=== PATIENT | male | born 1935 | race Caucasian/White ===

== ENCOUNTER 2016-08-12 11:14 | Day surgery (SDC) | payer MEDICARE, OTHER ==
[2016-08-12] VITALS (8 sets, daily range): BP systolic 132–142; BP diastolic 61–70; PULSE 57–69; RESP 11–16; O2SAT 99–100
[~2016-08-12] VITALS: Ht 172.7 cm; Wt 67.6 kg
[~2016-08-12 11:14] MED LIST: ASPI-973 PO; ATOR40TA69 PO; CeFAZolin Inj 2 GM in IV Premix 1 EACH IV SCH; LOPE2CAP PO; Lactated Ringer's 1,000 ML IV SCH
[2016-08-12] MEDS ORDERED: EPHEDrine/NS 5 mg/mL 5 mL Syringe ONE (11:15)
[2016-08-12] MEDS ORDERED: Lidocaine PF 1% 30 mL Inj ONE (11:15)
[2016-08-12] MEDS ORDERED: Propofol 10,000 mCg/mL 20 mL Inj ONE (11:15)
[2016-08-12] MEDS ORDERED: Ondansetron 2 mg/mL 2 mL Inj ONE (11:15)
[2016-08-12] MEDS ORDERED: fentaNYL-PF 50 mCg/mL 2 mL Inj ONE (11:15)
[2016-08-12] MEDS ORDERED: Lactated Ringer's 1,000 ML IV ONE (11:55)
--- NOTE | 2016-08-12 12:54 | PCM.HPANE ---
Patient Data Date of Service: Aug 12, 2016 Surgeon Admitting Provider: Attending Provider:Duran Carreon MD Primary Care Physician:Marilyn Huston Other Provider:Stefany Conde Anesthesia Reason for Visit Right Inguinal Hernia Ht/WT & BMI Height (Feet): 5 Height (Inches): 8.00 Weight (Kilograms): 67.580 Body Mass Index 22.00 Allergies Uncoded Allergies: EGGS (Allergy, Unknown, diarrhea, 08/10/16) Past Anesthesia History Anesthesia History: Denies:: Anesthesia Reactions, Fam Anesthesia Reaction Diabetes History Hx Diabetes?: No MRSA MRSA: No Medications Blood Thinner: Aspirin Hypertension Medication: No Home Meds Incl Beta Duke: No Reported Medications Loperamide 2 Mg Capsule2 Mg PO Q4H PRN For Diarrhea or Loose Stool 08/10/16 Aspirin 81 Mg [id number] Mg PO DAILY Ref 0 08/10/16 Atorvastatin Calcium 40 Mg [id number] Mg PO DAILY CHOLESTEROL Ref 0 04/24/16 Discontinued Reported Medications Lisinopril 10 Mg [id number] Mg PO DAILY HIGH BLOOD PRESSURE 30 Days Ref 0 04/24/16 History History of ENT Problems?: No HEENT History: Positive for:: Cataracts Hearing Problem Denies:: Dysphagia Sinus Problem Hx of Heart Problems?: Yes Cardiovascular History: Positive for:: Hypertension (no longer takes rx) Denies:: Cardiac Surgery Chest Pain Congestive Heart Failure Edema Heart Murmur Irregular Heartbeat Pacemaker Thrombophlebitis Hx of Respiratory Problem?: No Respiratory History: Positive for:: Pneumonia Denies:: Asthma COPD Chest Surgery Dyspnea Emphysema Hemoptysis Oxygen Administration Tuberculosis Use of C-PAP Machine Hx Neurologic Problems?: Yes Neurological History: Positive for:: TIA (3-4 years ago- pt states he had a mini stroke, no medical documentation) Denies:: Alzheimer's Disease CVA Dementia Dizziness Headaches Multiple Sclerosis Parkinson's Disease Seizures Hx of GI Problems?: Yes Gastrointestinal History: Positive for:: Hiatal Hernia Denies:: Diverticulitis Gastroesphageal Reflux Gastrointestinal Bleeding Heartburn Hepatitis Rectal Bleeding Other GI Pertinent History: hx of ileocecotomy recently. Recently struggling with diarrhea- taking loperamide Hx of Problems?: No Genitourinary History: Denies:: HX of Hemodialysis Kidney Stones Urinary Tract Infection HX of Peritoneal Dialysis: No Male Hx: Positive for:: Prostate Problems (Prostrate removed 2001) Denies:: Scrotal Mass Testicular Surgery Skin History: Denies:: History Skin Disorders? Pressure Ulcers Hx Musculoskeletal Problems?: No Musculoskeletal History: Denies:: Back Injury Fibromyalgia Joint Replacement Musculoskeletal Trauma Hx of Psycho/Social Problems?: No Psycho Social History: Denies:: Anxiety Bipolar Disorder Hx Depression Suicide Attempt Hx Surgeries?: Yes (prostatectomy, ileocecotomy) Hx Any Other Health Problems?: Yes Other History: Positive for:: Cancer (Prostrate CA removed 2001) Hospitalization Denies:: Thyroid Disease History Blood Transfusions: Positive for:: Accept Blood Products? Blood Transfusions Denies:: Blood Transfuse Reaction Hx Diabetes: No Hx Alcohol Use: No (not for 7-8 years ago, very rarely now)Hx Substance Use: No Smoking Status: Former Smoker Have You Smoked inLast 12 mo: No Stop/Bang S-Snoring: Do You Snore Loudly: No T-Tired: feel tired, fatigued: No O-Obsered: Observed not breath: No P-Blood Pressure: treated: Yes B- Body Mass Index > 35 kg/m2: No A- Age over 50: Yes N- Neck Large Circumference: No G- Gender Male: Yes JODIE Total Score: 3 JODIE Risk Assessment: Low Risk, <3 Yes Risk Assessment Category Category 1A: Patient has history of documented sleep apnea, and HAS NOT received any narcotic, sedative or anesthesia administration during this stay. Category 1B: Patient has history of documented sleep apnea, and HAS received any narcotic , sedative or anesthesia administration during this stay Category 2: Patient has SUSPECTED Obstructive Sleep Apnea, and HAS received any narcotic , sedative or anesthesia administration during this stay. Category 3: Patient has SUSPECTED Obstructive Sleep Apnea and HAS NOT received narcotic, sedative or anesthesia administration during this stay. Category 4: Outpatient in Procedural Areas with known sleep apnea or who screen positive for High Risk via the STOP/BANG questionnaire. Exam Exam Vital Signs Vital Signs Date Time Temp Pulse Resp B/P Pulse Ox O2 Delivery O2 Flow Rate FiO2 08/12/16 11:49 36.6 62 14 135/65 100 Room Air General Appearance: Alert, Oriented X3, Cooperative, No Acute Distress HEENT/AIRWAY: MP 2 Lungs: Clear to Auscultation, Normal Air Movement Heart: Exam Unremarkable, Regular Rate/Rhythm, No Murmurs/Rubs/Gallops Meds/Labs/Diagnostics Admission Meds Current Medications Lactated Ringer's (Lr) 1,000 ml @ ud STK-MED ONCE IV Last administered on t 11:55; Start 08/12/16 at 11:55; Stop 08/12/16 at 11:56; Status DC Plan Impression Patient chart reviewed, patient interviewed and anesthestic plan with risks, benefits, and alternatives discussed, and informed consent obtained. NPO Status: confirmed before mn ASA Physical Status: ASA2 Mod Systemic Disease Anesthetic Plan: GA Bene/Risks/Altern/Consents: Yes HP Complete Prior to Induction: Yes Nir Cantrell MD Aug 12, 2016 12:54
[2016-08-12] MEDS ORDERED: Bupivacaine-MPF 0.5% 30 mL Inj INFILTRATE ONE (13:18)
[2016-08-12] MEDS ORDERED: Lactated Ringer's 1,000 ML IV SCH (13:33)
[2016-08-12] MEDS ORDERED: Lactated Ringer's 500 ML IV PRN (13:33)
[2016-08-12] MEDS ORDERED: Phenylephrine 10,000 mCg/mL Inj IVPUSH PRN (13:35)
[2016-08-12] MEDS ORDERED: Labetalol 5 mg/mL 4 mL Inj IV PRN (13:35)
[2016-08-12] MEDS ORDERED: Ondansetron 2 mg/mL 2 mL Inj IVPUSH PRN (13:35)
[2016-08-12] MEDS ORDERED: fentaNYL-PF 50 mCg/mL 2 mL Inj IVPUSH PRN (13:35)
[2016-08-12] MEDS ORDERED: HYDROmorphone 1 mg/mL Inj IVPUSH PRN (13:35)
[2016-08-12] MEDS ORDERED: EPHEDrine Sulfate 50 mg/mL Inj IVPUSH PRN (13:35)
[2016-08-12] MEDS ORDERED: Dexamethasone 4 mg/mL Inj IVPUSH PRN (13:35)
[2016-08-12] MEDS ORDERED: hydrALAZINE 20 mg/mL Inj IVPUSH PRN (13:35)
[2016-08-12] MEDS ORDERED: Atropine 0.4 mg/mL Inj IVPUSH PRN (13:35)
[2016-08-12] MEDS ORDERED: MetoCLOpramide 5 mg/mL 2 mL Inj IVPUSH PRN (13:35)
[2016-08-12] MEDS ORDERED: oxyCODONE-Acetamin 5-325 mg Tablet PO PRN (13:55)
--- NOTE | 2016-08-12 14:00 | PCM.ANEP1 ---
Post Anesthesia Phase 1 PACU Phase 1 Assessment Date of Service: Aug 12, 2016 Vital Signs Vital Signs Date Time Temp Pulse Resp B/P Pulse Ox O2 Delivery O2 Flow Rate FiO2 08/12/16 13:55 62 11 142/67 99 Room Air 08/12/16 13:53 36.8 138/67 08/12/16 11:49 36.6 62 14 135/65 100 Room Air Anesthetic Administered: GA Level of Alertness: Sleeping, hard to arouse SHARPE's with Equal Strength: Yes Pain: No Nausea or Vomiting: No Oxygen Delivery: Room Air Lungs: Clear to Auscultation, Normal Air Movement Nir Cantrell MD Aug 12, 2016 14:00
--- NOTE | 2016-08-12 14:23 | OP ---
[address] [id number] OPERATIVE REPORT PATIENT: HILARIO LUCAS : 1935 MR#: [id number] ADMIT: 08/12/2016 JOB ID: [id number] DATE OF SURGERY: 08/12/2016 ANESTHESIA: General. PREOPERATIVE DIAGNOSIS(ES): Symptomatic right inguinal hernia. POSTOPERATIVE DIAGNOSIS(ES): Symptomatic right inguinal hernia (indirect). OPERATION: Open repair of right inguinal hernia using mesh. SURGEON: Duran Carreon MD DIRECTOR CAREER SERVICES: 1. Serafin Molina PA-C (the assistant manager bilingual was required for the safe and timely completion of the case). 2. AMANDA Malhotra. COMPLICATIONS: None. ESTIMATED BLOOD LOSS: Minimal. CONDITION: Satisfactory. SPECIMEN: None. FINDINGS: There was a moderate-sized indirect inguinal hernia. This was repaired with a piece of Bard soft mesh. INDICATIONS/SIGNIFICANT HISTORY: The patient is a 80-year-old man who has had a right inguinal hernia for quite some time. He finds it uncomfortable and therefore desired repair. OPERATIVE TECHNIQUE: The patient was taken to the operating room and placed in the supine position. General she is a was administered and perioperative antibiotics were given. The groin and abdomen were prepped and draped in standard surgical fashion. A procedural pause was performed. Local anesthetic was injected. A right inguinal incision was made and dissection carried down through the skin and subcutaneous tissue. The aponeurosis of the external oblique was opened in line with the fibers. The cord was then circumferentially dissected free. The floor appeared intact. I then investigated the cord. There was a sac identified in the anterior medial location. I opened the sac and then dissected it free from the cord structures. I high ligated this with a 3-0 Vicryl. A piece of soft mesh was then trimmed to the appropriate shape and size and secured in place using interrupted 2-0 PDS sutures. The result was a nice reinforcement of the floor and a recreation of the internal ring. The aponeurosis of the external oblique was then closed using a running 3-0 Vicryl. Alicia's was closed with interrupted 3-0. The skin was closed using 4-0 Monocryl. Dermabond was applied. The entire procedure was well tolerated and without complication.
--- NOTE | 2016-08-12 14:51 | PCM.ANEP2 ---
Post Anesthesia Evaluation ASA/CMS Post Anesthesia Date of Service: Aug 12, 2016 VS in Patient's Normal Range?: Yes Resp Stable; Airway Patent?: Yes CV Function & Hydration Stable: Yes Mental Status Recovered?: Yes Pain control Satisfactory?: Yes N/V Control Satisfactory?: Yes Nir Cantrell MD Aug 12, 2016 14:51
== END 2016-08-12 23:59 | disposition home or self-care (01) ==
LOC: SAS 11:14
PROVIDERS: ATTEND General Practice
DX: K40.90 Unilateral inguinal hernia, without obstruction or gangrene, not specified as recurrent (principal); I10 Essential (primary) hypertension; K44.9 Diaphragmatic hernia without obstruction or gangrene; E78.5 Hyperlipidemia, unspecified; Z86.73 Personal history of transient ischemic attack (TIA), and cerebral infarction without residual deficits; Z90.79 Acquired absence of other genital organ(s); Z79.82 Long term (current) use of aspirin; Z90.49 Acquired absence of other specified parts of digestive tract; Z85.46 Personal history of malignant neoplasm of prostate; Z87.891 Personal history of nicotine dependence
CPT/HCPCS: 49505; C1781; J0690; J2405; J3010; J7120